=== PATIENT | female | born 2000 | race Caucasian/White ===

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

== ENCOUNTER 2023-08-14 09:04 | Inpatient (IN) | payer OTHER ==
[2023-08-14] MEDS ORDERED: AMPICILLIN 2,000 MG in SODIUM CHLORIDE 0.9% 100 ML IVPB STA (09:37)
[2023-08-14] MEDS ORDERED: LIDOCAINE 0.5% (PF) 5 MG/ML (50 ML SDV) SQ PRN (09:37)
[2023-08-14] MEDS ORDERED: METHYLERGONOVINE 0.2 MG/ML 1 ML AMP IM PRN (09:37)
[2023-08-14] MEDS ORDERED: TRANEXAMIC 1,000 MG/100ML-NACL 1,000 MG in EMPTY BAG 1 BAG IV PRN (09:37)
[2023-08-14] MEDS ORDERED: miSOPROStoL 200 MCG TAB PO PRN (09:37)
[2023-08-14] MEDS ORDERED: TERBUTALINE 1 MG/ML VIAL SQ PRN (09:37)
[2023-08-14] MEDS ORDERED: CARBOPROST TROMETHAMINE 250 MCG/ML 1 ML AMP IM PRN (09:37)
[2023-08-14] MEDS ORDERED: OXYTOCIN 10 UNIT/ML 1 ML VIAL IM PRN (09:37)
[2023-08-14] MEDS ORDERED: OXYTOCIN 30 UNITS/500 ML NS 30 UNIT in SALINE 1 500ML.BAG IV SCH ×2 (09:45→16:45)
[2023-08-14] MEDS ORDERED: LACTATED RINGERS 1,000 ML IV SCH (09:45)
[2023-08-14] MEDS: LACTATED RINGERS 1,000 ML IV SCH ×2 (10:09→20:08)
[2023-08-14 10:12] LABS: Basophils % (A) 0 %; Eosinophils % (A) 0 %; HGB 12.2 gm/dL (11.4-16.0); Lymphocytes # (A) 1.3 k/uL (1.0-4.8); Lymphocytes % (A) 13 %; MCH 32.8 pg (25.0-35.0); MCHC 34.8 g/dL (31.0-37.0); MCV 94.3 fL (80.0-100.0); Mean Platelet Volume 9.3; Monocytes # (A) 0.3 k/uL (0-1.0); Monocytes % (A) 3 %; Neutrophils # (A) 7.9 k/uL (1.3-7.7); Neutrophils % (A) 82 %; Platelet Count 185 k/uL (150-450); RBC 3.71 m/uL (3.80-5.40); RDW 12.6 % (11.5-15.5); WBC 9.6 k/uL (3.8-10.6)
[2023-08-14] MEDS ORDERED: fentaNYL (PF) 50 MCG/ML 5 ML AMP ONE (11:14)
[2023-08-14] MEDS ORDERED: SODIUM CHLORIDE 0.9% 250 ML BAG ONE (11:14)
[2023-08-14] MEDS ORDERED: ROPIVACAINE 5 MG/ML 30 ML VIAL ONE (11:14)
[2023-08-14] MEDS: AMPICILLIN 1,000 MG in SODIUM CHLORIDE 0.9% 50 ML IVPB SCH (13:59)
[2023-08-14] MEDS ORDERED: HYDROCORTISONE 2.5% RECTAL CREAM 30 GM TUBE RECTAL PRN (16:39)
[2023-08-14] MEDS ORDERED: diphenhydrAMINE 50 MG/ML 1 ML VIAL IVP PRN ×2 (16:39)
[2023-08-14] MEDS ORDERED: ZOLPIDEM 5 MG TAB PO PRN (16:39)
[2023-08-14] MEDS ORDERED: diphenhydrAMINE 25 MG CAP PO PRN (16:39)
[2023-08-14] MEDS ORDERED: BENZOCAINE/MENTHOL SPRAY 1 GM/SPRAY AEROSOL TOPICAL PRN (16:39)
[2023-08-14] MEDS ORDERED: LANOLIN CREAM 5 GM TUBE TOPICAL PRN (16:39)
[2023-08-14] MEDS ORDERED: diphenhydrAMINE 50 MG CAP PO PRN (16:39)
[2023-08-14] MEDS ORDERED: SIMETHICONE 80 MG CHEWABLE PO PRN (16:39)
[2023-08-14] MEDS: IBUPROFEN 600 MG TAB PO PRN ×2 (17:06→23:30)
[2023-08-14] MEDS: SENNOSIDES-DOCUSATE SODIUM 1 EACH TAB PO SCH (17:07)
[2023-08-14 17:52] VITALS: RESP 16
--- NOTE | 2023-08-14 17:56 | P.PROBDLV ---
Vaginal Delivery Note - . Vaginal Delivery Note: This is a 23-year-old female 2 para 0 at 39-6/7 weeks who presented for spontaneous rupture membranes at 8 PM last night. She underwent oxytocin augmentation of labor and antibiotic prophylaxis due to prolonged rupture of membranes and positive group B streptococcus. She did receive epidural anesthesia. Once reaching complete, she began pushing. Infant's a came to a crown and then with one further push the infant's head delivered across the perineum followed by the anterior shoulder. Nose and mouth were bulb suctioned and nuchal cord times one was reduced around the infant's head. With one further push, the remainder the easily delivered and was placed on mother's abdomen. Cord was allowed to pulsate for approximately 30 seconds and then was clamped and cut. A viable female was noted with scores of 9 at 1 minute and 9 at 5 minutes and infant weight was 6 pounds 5.6 ounces. Placenta delivered shortly thereafter, with a three-vessel cord. There was a few pieces of membrane or manually removed with a gloved hand. Once this was complete, uterus did contract well. Inspection of the perineum revealed a small first-degree perineal laceration on the right side of the vagina. This area was anesthetized with 1% lidocaine and then sutured with 3-0 Vicryl suture in a running locked fashion. Estimated blood loss is approximately 250 mL's. Both mother and infant are in stable condition.
[2023-08-14] MEDS: ACETAMINOPHEN TAB 325 MG TAB PO PRN (20:07)
[2023-08-14] MEDS ORDERED: CALCIUM CARBONATE 500 MG CHEWABLE PO PRN (20:09)
[2023-08-15] MEDS: ACETAMINOPHEN TAB 325 MG TAB PO PRN ×2 (02:24→07:53)
[2023-08-15] MEDS: IBUPROFEN 600 MG TAB PO PRN ×2 (05:12→12:21)
[2023-08-15 07:41] LABS: Basophils % (A) 0 %; Eosinophils % (A) 1 %; HCT 28.4 % (34.0-46.0); HGB 10.1 gm/dL (11.4-16.0); Lymphocytes # (A) 1.5 k/uL (1.0-4.8); Lymphocytes % (A) 18 %; MCH 33.2 pg (25.0-35.0); MCHC 35.4 g/dL (31.0-37.0); MCV 93.9 fL (80.0-100.0); Mean Platelet Volume 8.8; Monocytes # (A) 0.4 k/uL (0-1.0); Monocytes % (A) 4 %; Neutrophils # (A) 6.7 k/uL (1.3-7.7); Neutrophils % (A) 76 %; Platelet Count 151 k/uL (150-450); RBC 3.03 m/uL (3.80-5.40); RDW 13.1 % (11.5-15.5); WBC 8.7 k/uL (3.8-10.6)
[2023-08-15] MEDS: SENNOSIDES-DOCUSATE SODIUM 1 EACH TAB PO SCH (07:53)
[2023-08-15 08:10] VITALS: BP 114/69; PULSE 66; TEMP 98
--- NOTE | 2023-08-15 08:31 | P.HPOB ---
History of Present Illness H&P Date: 08/14/23 Chief Complaint: Spontaneous rupture of membranes This is a 23-year-old female 2 para 0 with an estimated date of confinement of 08/15/2023, estimated gestational age of 39-6/7 weeks who presented with complaints of spontaneous rupture membranes at 8 PM on 08/13/2023 . Upon arrival she was found to have spontaneous rupture membranes with positive amnisure. She did complain of irregular contractions. care has been uncomplicated. labs: Blood type is A+ Antibody screen-negative Rubella-immune Hepatitis B surface antigen-negative Group B strep coccus-positive HIV-nonreactive RPR-nonreactive 1 hour Glucola-97 Obstetrical history: . History of 1 termination of . Gynecologic history: History of herpes. She is on suppression. Social history: She is single. She works as a bistro server. Review of Systems Constitutional: Denies chills, Denies fever Eyes: denies blurred vision, denies pain Ears, nose, mouth and throat: Denies headache, Denies sore throat Cardiovascular: Denies chest pain, Denies shortness of breath Respiratory: Denies cough Gastrointestinal: Reports abdominal pain (Irregular contractions) Genitourinary: Reports pelvic pain, Reports Musculoskeletal: Reports low back pain Integumentary: Denies pruritus, Denies rash Neurological: Denies numbness, Denies weakness Psychiatric: Denies anxiety, Denies depression Past Medical History Past Medical History: No Reported History History of Any Multi-Drug Resistant Organisms: None Reported Past Surgical History: No Surgical Hx Reported Past Anesthesia/Blood Transfusion Reactions: No Reported Reaction Past Psychological History: No Psychological Hx Reported Smoking Status: Former smoker Past Alcohol Use History: None Reported Past Drug Use History: Marijuana Additional Drug Use History / Comment(s): Vaped and THC, quit with - Past Family History Father Family Medical History: No Reported History Medications and Allergies Home Medications Medication Instructions Recorded Confirmed Type Vit No.179/Iron/Folic 1 each PO 08/14/23 History [ Tablet] valACYclovir HCL [Valtrex] 08/14/23 History Allergies Allergy/AdvReac Type Severity Reaction Status Date / Time amoxicillin Allergy Nausea & Verified 08/14/23 09:34 Vomiting Exam Osteopathic Statement: *. No significant issues noted on an osteopathic structural exam other than those noted in the History and Physical/Consult. Vital Signs Temp Pulse Resp BP Pulse Ox 08/15/23 07:56 66 16 08/15/23 07:55 98.0 F 66 16 114/69 08/15/23 00:00 97.6 F 67 16 117/66 08/14/23 20:00 98.1 F 75 16 123/74 08/14/23 18:20 73 16 133/68 08/14/23 17:50 72 16 117/74 08/14/23 17:20 65 16 126/67 08/14/23 17:05 76 17 127/73 08/14/23 16:50 79 16 123/68 08/14/23 16:35 84 16 131/64 08/14/23 16:20 97.2 F L 90 16 138/71 08/14/23 09:33 97.7 F 66 16 124/75 99 Intake and Output 08/14/23 08/15/23 08/15/23 22:59 06:59 14:59 Output Total 250 Balance -250 Output: Output, Quantitative 250 Blood Loss Other: Voiding Method Toilet HEENT: Within normal limits Heart: Regular rate and rhythm Lungs: Clear to auscultation bilaterally Abdomen: Cervix: On admission was 4 cm/90%/-2 station, positive amnisure with clear fluid noted heart tones: Reactive with occasional variable decelerations, good variability Contractions: Irregular every 5-7 minutes Studies: Negative Homans Results Result Diagrams: 08/15/23 07:19 Abnormal Lab Results - Last 24 Hours (Table) 08/14/23 08/15/23 Range/Units 10:00 07:19 RBC 3.71 L 3.03 L (3.80-5.40) m/uL Hgb 10.1 L (11.4-16.0) gm/dL Hct 28.4 L (34.0-46.0) % Neutrophils # 7.9 H (1.3-7.7) k/uL Assessment and Plan (1) 39 weeks gestation of Current Visit: Yes Status: Acute Code(s): Z3A.39 - 39 WEEKS GESTATION OF SNOMED Code(s): 08639976 (2) Group B Streptococcus carrier, +RV culture, currently Current Visit: Yes Status: Acute Code(s): O99.820 - STREPTOCOCCUS B CARRIER STATE COMPLICATING SNOMED Code(s): 4814342639530 (3) Prolonged rupture of membranes Current Visit: Yes Status: Acute Code(s): O42.90 - KULDIP ROM, 7TH0 BETW RUPT & ONST LABR, UNSP WEEKS OF GEST SNOMED Code(s): 44250610 Plan: Admission for early active labor. Oxytocin augmentation of labor. Will give am picillin for group B streptococcus and prolonged rupture membranes. Active management.
--- NOTE | 2023-08-15 08:34 | P.DS ---
Providers Date of admission: 08/14/23 09:32 Expected date of discharge: 08/15/23 Attending physician: Sravani Holloway Primary care physician: Stated None - Discharge Diagnosis(es) (1) 39 weeks gestation of Current Visit: Yes Status: Acute (2) Group B Streptococcus carrier, +RV culture, currently Current Visit: Yes Status: Acute (3) Prolonged rupture of membranes Current Visit: Yes Status: Acute Hospital Course: This is a 23-year-old female 2 para 0 at 39-6/7 weeks who presented with spontaneous rupture membranes from the previous evening. She underwent oxytocin augmentation of labor and did receive antibiotic prophylaxis for prolonged rupture of membranes and positive group B streptococcus. She did receive epidural anesthesia. She delivered viable female infant on 08/14/2023 with A pgar scores of 9 at 1 minute and 9 at 5 minutes and weight of 6 pounds 5.6 ounces. course has been uncomplicated. She is breast-feeding. Lochia is decreasing. Pain is well-controlled. Vital signs are stable. Abdomen is soft with fundus firm and nontender. Extremities show negative Homans. Impression is status post vaginal delivery day #1. Plan is to discharge home as long as the baby is able to go home today. She is given routine instructions. She is advised to follow up in the office in 6 weeks for her check. She is advised to call the office if she has any further questions or concerns. She will be given a prescription for ibuprofen. She states she has a breast pump at home. Procedures: Oxytocin augmentation of labor Spontaneous vaginal delivery of a viable female on 08/14/2023 Patient Condition at Discharge: Stable Plan - Discharge Summary New Discharge Prescriptions: New Ibuprofen [Motrin] 600 mg PO Q6HR PRN #60 tab PRN Reason: Mild Pain (Scale 1 To 3) Continue Vit No.179/Iron/Folic [ Tablet] 1 each PO valACYclovir HCL [Valtrex] Discharge Medication List Vit No.179/Iron/Folic [ Tablet] 1 each PO 08/14/23 [History] valACYclovir HCL [Valtrex] 08/14/23 [History] Ibuprofen [Motrin] 600 mg PO Q6HR PRN #60 tab 08/15/23 [Rx] Follow up Appointment(s)/Referral(s): Sravani Holloway DO [Doctor of Osteopathic Medicine] - 1 Week Activity/Diet/Wound Care/Special Instructions: Instructions 1. Do not begin any exercise program for 3 weeks. 2. Do not resume sexual relations for 3 weeks or longer if uncomfortable. 3. You may take tub baths or showers at any time. 4. You may use tampons if desired after 3 weeks. 5. Keep the area of episiotomy (stitches) clean and dry. 6. If you are not nursing, wear a good fitting, supportive bra during the day and limit fluid intake for at least 1 week to prevent breast engorgement. 7. Call the office, [phone], within the next week to make appointment for your 6 week checkup if it has not already been made. 8. Report any of the following occurrences to the doctor promptly: a. Heavy, excessive bleeding b. Chills, fever c. Burning or frequency of urination d. Pain or redness and breasts if nursing e. Increasing pain or swelling in episiotomy (stitches). In addition to the above instructions, the following additional should be followed: 1. No heavy lifting or straining (exercising) until after 6 week checkup. 2. Keep abdominal incision clean and dry: You may wear a dressing if more comfortable. 3. Make office appointment for 10 days after going home or as instructed by her doctor. Discharge Disposition: HOME SELF-CARE
[2023-08-15] MEDS: AMPICILLIN 1,000 MG in SODIUM CHLORIDE 0.9% 50 ML IVPB SCH (10:18)
--- NOTE | 2023-10-19 12:16 | CDI ---
Documentation Clarification Form Date: 10/19/2023 11:59:43 AM From: Luisa Anne Phone: Admit Date: 08/14/2023 09:32:00 AM Patient Name: Rosibel Andrade Visit Number: [id number] Discharge Date: 08/15/2023 05:15:00 PM ATTENTION: The Clinical Documentation Specialists (CDI) and [facility] Coding Staff appreciate your assistance in clarifying documentation. Please respond to the clarification below the line at the bottom and electronically sign. The CDI & [facility] Coding staff will review the response and follow-up if needed. Please note: Queries are made part of the Legal Health Record. If you have any questions, please contact the author of this message via ITS. Dr. Sravani Holloway Your patient is receiving the following: There was a few pieces of membrane or manuallyremovedwith a gloved hand. Please clarify what condition/diagnosis is being treated. History/Risk Factors: 23yo F, delivery w complication of cord around neck w/o compression, carrier of Strep B, herpes viral infection Clinical indicators: placenta delivered shortly after infant. Treatment: There was a few pieces of membrane or manuallyremovedwith a gloved hand. Once this was complete, uterus did contract well. Inspection of the perineumrevealed a small 1st degree perineal lacerationon the right side of the vagina. This area was anesthetized with 1% lidocaine and then sutured with 3-0 Vicryl suture in a running locked fashion. What diagnosis are you treating with membrane or manuallyremoved? [X ] Retained products of conception at time of delivery [ ] No additional diagnosis [ ] Other, please specify [ ] Unable to determine (Template Last Reviewed: November 2020) MTDD
== END 2023-08-15 17:15 | disposition home or self-care (01) | DRG 560 ==
LOC: FBPOP 09:04 → 4FBP 09:32
PROVIDERS: ADMIT Obstetrics & Gynecology; ATTEND Obstetrics & Gynecology
PROC: 10E0XZZ Delivery of Products of Conception, External Approach (ICD-10-PCS; principal; 2023-08-14)
PROC: 0HQ9XZZ Repair Perineum Skin, External Approach (ICD-10-PCS; 2023-08-14)
DX: O42.92 Full-term premature rupture of membranes, unspecified as to length of time between rupture and onset of labor (principal); Z37.0 Single live birth; O99.834 Other infection carrier state complicating childbirth; O72.2 Delayed and secondary postpartum hemorrhage; O69.81X0 Labor and delivery complicated by cord around neck, without compression, not applicable or unspecified; O98.52 Other viral diseases complicating childbirth; B00.9 Herpesviral infection, unspecified; O70.0 First degree perineal laceration during delivery; O99.824 Streptococcus B carrier state complicating childbirth; Z3A.39 39 weeks gestation of pregnancy; Z87.891 Personal history of nicotine dependence; Z88.0 Allergy status to penicillin
CPT/HCPCS: 85025; 86850; 86900; 86901; 88307